=== PATIENT | male | born 2000 | race Caucasian/White ===

== ENCOUNTER → 2018-08-22 | Outpatient (CLI) | payer BC | LOC: BMCIMAGING 14:33 | PROVIDERS: ATTEND Family Medicine | DX: R07.89 Other chest pain (principal) ==

== ENCOUNTER 2018-11-02 01:45 | Emergency (ER) | payer BC ==
--- NOTE | 2018-11-02 01:59 | EDPHY ---
H & P Stated Complaint: LEFT TESTICLE AREA PAIN 1 HR AGO, WOKE SROM A SLEEP Time Seen by Provider: 11/02/18 01:55 HPI/ROS: Chief Complaint: Testicle pain HPI: 18-year-old sexually active male woke 1 hr ago with pain in his left testicle. He he feels that it is swollen. Denies any trauma. He is sexually active with multiple partners. No history of sexually transmitted infections in the past. No burning with urination. No rashes. No discharge. No history of similar pain in the past. ROS: 10 systems were reviewed and were negative except those elements noted in the HPI. PMH: Denies Social History: No smoking, occasional alcohol, no recreational drug use Family History: non-contributory Physical Exam: Gen: Awake, Alert, No Distress HEENT: Nose: no rhinorrhea Eyes: PERRLA, EOMI Mouth: Moist mucosa Abd: Soft, non-tender, no guarding Genital: Circumcised male. Normal testicular lie. No significant swelling. There is mild erythema over the left scrotum. Does have tenderness over the epididymis. He has normal cremasteric. Ext: no edema, non-tender Skin: no rash Neuro: CN II-XII intact, Sensation grossly intact, Strength 5/5 in bilateral upper and lower extremities - Personal History Current Tetanus/Diphtheria Vaccine: Yes Current Tetanus Diphtheria and Acellular Pertussis (TDAP): Yes - Medical/Surgical History Hx Asthma: No Hx Chronic Respiratory Disease: No Hx Diabetes: No Hx Cardiac Disease: No Hx Renal Disease: No Hx Cirrhosis: No Hx Alcoholism: No Hx HIV/AIDS: No Hx Splenectomy or Spleen Trauma: No Other PMH: ANXIETY - Social History Smoking Status: Never smoked Constitutional: Initial Vital Signs Temperature (C) 37.5 C 11/02/18 01:47 Heart Rate 108 H 11/02/18 01:47 Respiratory Rate 18 11/02/18 01:47 Blood Pressure 155/83 H 11/02/18 01:47 O2 Sat (%) 94 11/02/18 01:47 O2 Delivery Mode Room Air Allergies/Adverse Reactions: No Known Allergies Allergy (Unverified 11/02/18 01:50) Home Medications: Medication Instructions Recorded NK [No Known Home Meds] 11/02/18 Medical Decision Making - Diagnostics Imaging Results: EXAM: US Scrotum. CLINICAL HISTORY: Left sided testicular pain Dr. Duncan Lujan [phone] TECHNIQUE: Real-time ultrasound of the scrotum with color Doppler and image documentation. COMPARISON: None provided. FINDINGS: RIGHT TESTICLE: No mass. Normal Doppler flow. LEFT TESTICLE: No mass. Normal Doppler flow. EPIDIDYMIDES: Small 3 mm anechoic structure within the right epididymal head likely represents cyst. SCROTUM: Prominent left pampiniform axis suggesting varicocele IMPRESSION: No acute abnormality. Left varicocele. ELECTRONICALLY SIGNED BY: Morro Rivas DO Nov 02, 2018 2:45:04 AM MDT ED Course/Re-evaluation: Ultrasound consistent with varicocele. No evidence of torsion or infection. Patient has been reassured. Will discharge with follow-up with [facility] as an outpatient. Departure - Departure Disposition: Home, Routine, Self-Care Clinical Impression: Testicle pain, Varicocele Condition: Good Instructions: Testicle Pain (ED), Varicocele (ED) Additional Instructions: [facility]3 days for further evaluation. Return to the emergency department for severe worsening pain, worsening swelling , redness, pain with urination, discharge, or any other concerns. Referrals: MIAN MAXWELL ,. [Clinic] - As per Instructions
[2018-11-02 03:29] VITALS: BP 107/70
== END 2018-11-02 03:15 | disposition home or self-care (01) ==
DX: I86.1 Scrotal varices (principal)

== ENCOUNTER 2018-11-06 16:26 | Emergency (ER) | payer BC ==
[2018-11-06] MEDS ORDERED: NS 1,000 ML IV ONE (16:41)
--- NOTE | 2018-11-06 16:42 | EDPHY ---
H & P Time Seen by Provider: 11/06/18 16:27 HPI/ROS: CHIEF COMPLAINT: Abdominal pain HISTORY OF PRESENT ILLNESS: [place] well until yesterday afternoon he started developing of generalized stomach ache around his umbilicus. Over the last 24 hr migrated to the right side and radiates to his back and feels like he "threw out my back."Some increased urination. Worse with movement. Localized to the right lower quadrant, no or testicular pain. No injury or trauma, not associated with fever. REVIEW OF SYSTEMS: Eye: no change in vision ENT: no sore throat Cardiac: no chest pain or syncope Pulmonary: no cough or SOB Abdomen: HPI Musculoskeletal: HPI Skin: no rash Neuro: no headache Constitutional: no fever : HPI A comprehensive 10 point review of systems is otherwise negative aside from elements mentioned in the history of present illness. PAST MEDICAL HISTORY: Negative Social history: Smoker General Appearance: Alert and conversant, cooperative. Eyes: No scleral icterus. ENT, Mouth: Normal mucous membranes. Respiratory: Normal respiratory effort, breath sounds equal, lungs are clear to auscultation. Cardiovascular: Regular rate and rhythm. Gastrointestinal: Normal male , no hernia, right lower quadrant tenderness without guarding. Neurological: Alert, face symmetric, normal motor and sensory in extremities. Skin: Warm and dry, no rashes. No zoster. Musculoskeletal: No peripheral edema. No CVA or spinal tenderness. Psychiatric: Not agitated. Emergency Department course/MDM: Plan for CT abdomen pelvis discussed and consented to evaluate for appendicitis versus renal colic or Meckel's or mesenteric adenitis. 1748: No evidence for appendicitis, more likely mesenteric adenitis on CT per Dr. Madrigal. Results discussed with the patient, ambulatory without antalgic gait to the bathroom. Warned to return if worse or not completely better in 8-12 hours. 1813: abdomen soft, tolerated ibuprofen, no guarding. Smoking Status: Current every day smoker Constitutional: Initial Vital Signs Temperature (C) 36.6 C 11/06/18 16:29 Heart Rate 68 11/06/18 16:29 Respiratory Rate 18 11/06/18 16:29 Blood Pressure 129/82 H 11/06/18 16:29 O2 Sat (%) 99 11/06/18 16:29 O2 Delivery Mode Room Air Allergies/Adverse Reactions: No Known Allergies Allergy (Verified 11/06/18 16:28) Home Medications: Medication Instructions Recorded NK [No Known Home Meds] 11/02/18 Medical Decision Making - Diagnostics Imaging Results: Imaging Impressions Abdomen CT 11/06/18 16:58 Impression: 1. While the appendix is not definitively identified on this examination, no inflammatory changes are noted within the right lower quadrant mesentery to suggest acute appendicitis. 2. Mildly prominent lymph nodes in the right lower quadrant mesentery suggestive of reactive mesenteritis. 3. Mild nonspecific dilatation of the mid right ureter. This may be secondary to active peristalsis. No ureteral calculi identified. Results called to Dr. Jesús Bowman at 5:45 p.m. Imaging: Discussed imaging studies w/ crew caller Radiologist - Data Points Laboratory Results: Laboratory Results 11/06/18 16:45 11/06/18 11/06/18 11/06/18 18:00 16:48 16:45 WBC 4.74 10^3/uL 10^3/uL (3.80-9.50) RBC 5.11 10^6/uL 10^6/uL (4.40-6.38) Hgb 15.9 g/dL g/dL (13.7-17.5) POC Hgb 15.6 gm/dL gm/dL (13.7-17.5) Hct 44.1 % % (40.0-51.0) POC Hct 46 % % (40-51) MCV 86.3 fL fL (81.5-99.8) MCH 31.1 pg pg (27.9-34.1) MCHC 36.1 g/dL g/dL (32.4-36.7) RDW 12.2 % % (11.5-15.2) Plt Count 177 10^3/uL 10^3/uL (150-400) MPV 11.5 fL fL (8.7-11.7) Neut % (Auto) 49.3 % % (39.3-74.2) Lymph % (Auto) 37.8 % % (15.0-45.0) [place] % (Auto) 10.8 % % (4.5-13.0) Eos % (Auto) 1.3 % % (0.6-7.6) Baso % (Auto) 0.6 % % (0.3-1.7) Nucleat RBC Rel Count 0.0 % % (0.0-0.2) Absolute Neuts (auto) 2.34 10^3/uL 10^3/uL (1.70-6.50) Absolute Lymphs (auto) 1.79 10^3/uL 10^3/uL (1.00-3.00) Absolute Monos (auto) 0.51 10^3/uL 10^3/uL (0.30-0.80) Absolute Eos (auto) 0.06 10^3/uL 10^3/uL (0.03-0.40) Absolute Basos (auto) 0.03 10^3/uL 10^3/uL (0.02-0.10) Absolute Nucleated RBC 0.00 10^3/uL 10^3/uL (0-0.01) Immature Gran % 0.2 % % (0.0-1.1) Immature Gran # 0.01 10^3/uL 10^3/uL (0.00-0.10) POC Sodium 141 mEq/L mEq/L (135-145) POC Potassium 3.4 mEq/L mEq/L (3.3-5.0) POC Chloride 101 mEq/L mEq/L (97-110) POC Total CO2 27 mEq/L mEq/L (22-31) POC BUN 14 mg/dL mg/dL (7-23) POC Creatinine 1.3 mg/dL mg/dL (0.7-1.3) POC Glucose 93 mg/dL mg/dL (70-100) Urine Color PALE YELLOW Urine Appearance CLEAR Urine pH 6.0 (5.0-7.5) Ur Specific [place] 1.031 H (1.002-1.030) Urine Protein NEGATIVE (NEGATIVE) Urine Ketones TRACE H (NEGATIVE) Urine Blood NEGATIVE (NEGATIVE) Urine Nitrate NEGATIVE (NEGATIVE) Urine Bilirubin NEGATIVE (NEGATIVE) Urine Urobilinogen NEGATIVE EU EU (0.2-1.0) Ur Leukocyte Esterase NEGATIVE (NEGATIVE) Urine Glucose NEGATIVE (NEGATIVE) Medications Given: Discontinued Medications Sodium Chloride (Ns) 1,000 mls @ 0 mls/hr IV EDNOW ONE; Wide Open PRN Reason: Protocol Stop: 11/06/18 16:42 Last Admin: 11/06/18 16:47 Dose: 1,000 mls Ibuprofen (Motrin) 600 mg PO EDNOW ONE Stop: 11/06/18 17:56 Last Admin: 11/06/18 18:08 Dose: 600 mg Point of Care Test Results: Chemistry 11/06/18 16:48 POC Sodium 141 mEq/L mEq/L (135-145) POC Potassium 3.4 mEq/L mEq/L (3.3-5.0) POC Chloride 101 mEq/L mEq/L (97-110) POC Total CO2 27 mEq/L mEq/L (22-31) POC BUN 14 mg/dL mg/dL (7-23) POC Creatinine 1.3 mg/dL mg/dL (0.7-1.3) POC Glucose 93 mg/dL mg/dL (70-100) ISTAT H&H 11/06/18 16:48 POC Hgb 15.6 gm/dL gm/dL (13.7-17.5) POC Hct 46 % % (40-51) Departure - Departure Disposition: Home, Routine, Self-Care Clinical Impression: Mesenteric adenitis Abdominal pain Qualifiers: Abdominal location: right lower quadrant Qualified Code(s): R10.31 - Right lower quadrant pain Condition: Good Instructions: Acute Abdominal Pain (ED) Additional Instructions: You need to return to the emergency department immediately if you develop worsening or severe pain, fever, vomiting or you are not completely better in 8- 12 hours. Referrals: Jace Meyer MD [Medical Doctor] - As per Instructions
[2018-11-06 16:59] LABS: PLATELET COUNT 177 10^3/uL (150-400)
[2018-11-06] MEDS ORDERED: IOPAMIDOL (ISOVUE-300) 100 ML BTL ONE (17:04)
[2018-11-06] MEDS ORDERED: IBUPROFEN 600 MG TAB PO ONE (17:55)
[2018-11-06 18:25] VITALS: BP 121/78
== END 2018-11-06 18:26 | disposition home or self-care (01) ==
DX: I88.0 Nonspecific mesenteric lymphadenitis (principal); R10.31 Right lower quadrant pain; E86.9 Volume depletion, unspecified
CPT/HCPCS: 82435-PO; 82565-PO; 82947-PO; 84132-PO; 84295-PO; 84520-PO; 85014-ER; Q9967